=== PATIENT | male | born 1985 | race African-American/Black ===

== ENCOUNTER 2017-05-27 07:06 | Emergency (ER) | payer MEDICARE, MEDICAID ==
[2017-05-27 07:48] LABS: #Basophils 0.1 thou/uL (0.0-0.2); #Lymphocytes 1.6 thou/uL (1.20-3.40); #Monocytes 0.5 thou/uL (0.11-0.59); #Neutrophils 1.8 thou/uL (1.40-6.50); %Basophils 1.9 % (0.0-1.0); %Lymphocytes 38.5 % (21.0-51.0); %Monocytes 13.3 % (0.0-10.0); %Neutrophils 45.4 % (42.0-75.0); Hemoglobin 13.5 g/dL (14.0-18.0); Mean Corpuscular HGB CONC 30.4 g/dL (32.0-36.0); Mean Corpuscular Hemoglobin 22.7 pg (27.0-31.0); Mean Corpuscular Volume 74.5 fl (80.0-94.0); Mean Platelet Volume 9.1 fL (7.4-10.4); Platelet Count 171 thou/uL (130-400); RBC Distribution Width 13.2 % (11.5-14.5); Red Blood Cell (RBC) Count 5.97 mill/uL (4.70-6.10)
--- NOTE | 2017-05-27 07:56 | CT ---
CT OF BRAIN PERFORMED WITHOUT CONTRAST ENHANCEMENT: HISTORY: The patient has a history of seizure and CVA presenting after a seizure at [facility]. COMPARISON: An 11/17/16 exam. FINDINGS: The ventricular and cisternal system is within normal limits. No signs of intracerebral hemorrhage o r extraaxial fluid collection. The mastoid air cells and visualized sinuses are clear. IMPRESSION: No acute intracranial abnormalities. POS: OFF
[2017-05-27 08:05] LABS: ALT (SGPT) 34 U/L (8-55); AST (SGOT) 48 U/L (5-34); Albumin 4.2 g/dL (3.5-5.0); Alkaline Phosphatase 70 U/L (40-150); Anion Gap 11 mmol/L (10-20); BUN (Urea Nitrogen) 8 mg/dL (8.9-20.6); Bilirubin, Total 0.4 mg/dL (0.2-1.2); Calc. Creatinine Clearance 0 mL/min (70-130); Calcium 9.6 mg/dL (7.8-10.44); Carbon Dioxide 24 mmol/L (22-29); Chloride 107 mmol/L (98-107); Estimated GFR-MDRD Greater than 90; Globulin 3.3 g/dL (2.4-3.5); Glucose 103 mg/dL (70-105); Potassium 3.5 mmol/L (3.5-5.1); Protein, Total 7.5 g/dL (6.0-8.3); Sodium 138 mmol/L (136-145)
[2017-05-27 08:25] LABS: MDiff Complete? YES; Microcytosis SLIGHT = 6-15 cells (100X) (0-5/hpf)
[2017-05-27 09:30] LABS: Bilirubin Negative (Negative); Blood, Urine Moderate (Negative); Clarity CLOUDY (Clear); Glucose, Urine (Dipstick) Negative (Negative); Leukocyte Negative (Negative); Nitrite Negative (Negative); Protein, Urine (Dipstick) Negative (Neg-Trace); pH, Urine 7.5 (5.0-9.0)
[2017-05-27 09:33] LABS: Bacteria/HPF None Seen HPF (None Seen); Hyaline Casts/LPF 0-3 HYALINE CAST LPF (0-3 Hyaline); Pathc Cast-AUWi Flag 0.13 (0-2.49); RBC/HPF 21-50 HPF (0-3); Squamous Epithelial 0-3 HPF (0-3); WBC/HPF None Seen HPF (0-3)
[2017-05-27 09:50] LABS: Amphetamine Not Detected (NotDetected); Barbiturates Screen Not Detected (NotDetected); Benzodiazepine Screen Detected (NotDetected); Cocaine Metabolite Screen Not Detected (NotDetected); Medtox Control Line Valid? VALID (VALID); Medtox Reader # READER 1; Methadone Not Detected (NotDetected); Methamphetamine Not Detected (NotDetected); Opiate Screen Not Detected (NotDetected); Oxycodone Screen Not Detected (NotDetected); Phencyclidine (PCP) Not Detected (NotDetected); THC/Cannabinoid Screen Not Detected (NotDetected); Tricyclic Screen Not Detected (NotDetected)
== END 2017-05-27 09:38 | disposition home or self-care (01) ==
LOC: ERS 07:06
DX: G40.909 Epilepsy, unspecified, not intractable, without status epilepticus (principal); Z86.73 Personal history of transient ischemic attack (TIA), and cerebral infarction without residual deficits; Z79.82 Long term (current) use of aspirin; Z79.899 Other long term (current) drug therapy
CPT/HCPCS: 36415; 70450; 80053; 80306; 81003; 81015; 84146; 85025

== ENCOUNTER 2017-07-12 10:45 | Inpatient (IN) | payer MEDICARE, MEDICAID ==
[2017-07-12 11:14] LABS: #Basophils 0.1 thou/uL (0.0-0.2); #Lymphocytes 1.8 thou/uL (1.20-3.40); #Monocytes 0.5 thou/uL (0.11-0.59); #Neutrophils 1.6 thou/uL (1.40-6.50); %Basophils 1.3 % (0.0-1.0); %Eosinophils 1.1 % (0.0-10.0); %Lymphocytes 45.4 % (21.0-51.0); %Monocytes 13.5 % (0.0-10.0); %Neutrophils 38.6 % (42.0-75.0); Hemoglobin 14.5 g/dL (14.0-18.0); Mean Corpuscular HGB CONC 30.6 g/dL (32.0-36.0); Mean Corpuscular Hemoglobin 22.7 pg (27.0-31.0); Mean Corpuscular Volume 74.3 fl (80.0-94.0); Mean Platelet Volume 9.2 fL (7.4-10.4); Platelet Count 165 thou/uL (130-400); RBC Distribution Width 13.1 % (11.5-14.5); Red Blood Cell (RBC) Count 6.41 mill/uL (4.70-6.10)
[2017-07-12 11:21] LABS: INR-International Normal Ratio 1.1; PTT 27.4 SEC (22.9-36.1); Prothrombin Time 14.1 SEC (12.0-14.7)
[2017-07-12 11:27] LABS: ALT (SGPT) 24 U/L (8-55); AST (SGOT) 29 U/L (5-34); Albumin 4.3 g/dL (3.5-5.0); Alkaline Phosphatase 75 U/L (40-150); Anion Gap 11 mmol/L (10-20); BUN (Urea Nitrogen) 7 mg/dL (8.9-20.6); Bilirubin, Total 0.4 mg/dL (0.2-1.2); Calc. Creatinine Clearance 0 mL/min (70-130); Calcium 9.8 mg/dL (7.8-10.44); Carbon Dioxide 23 mmol/L (22-29); Chloride 109 mmol/L (98-107); Estimated GFR-MDRD Greater than 90; Globulin 3.6 g/dL (2.4-3.5); Glucose 70 mg/dL (70-105); Potassium 3.9 mmol/L (3.5-5.1); Protein, Total 7.9 g/dL (6.0-8.3); Sodium 139 mmol/L (136-145)
[2017-07-12 11:32] LABS: CKMB 3.7 ng/mL (0-6.6)
[2017-07-12] MEDS ORDERED: Metoclopramide 10 MG/10 ML UDCUP ONE ×3 (11:38→13:41)
[2017-07-12 11:40] LABS: Troponin I Less than 0.010 ng/mL (< 0.028)
--- NOTE | 2017-07-12 11:53 | CT ---
NONCONTRAST CT HEAD: DATE: 07/12/17. HISTORY: Last seen normal 10 minutes ago. Left-sided weakness and facial droop. COMPARISON: 05/27/17. FINDINGS: There is no evidence of an acute infarction, hemorrhage, mass effect, or midline shift. Ventricular system is normal in size, shape, and position. There has been no interval change when compared to th e prior exam. IMPRESSION: 1. No acute intracranial abnormality is demonstrated. 2. The above findings were discussed with Dr. Prince in emergency department on 07/12/17 at 1109 ying rs. CODE CR POS: [facility]
--- NOTE | 2017-07-12 12:21 | CT ---
CT ANGIOGRAM NECK WITH IV CONTRAST AND 3D RECONSTRUCTIONS CT ANGIOGRAM BRAIN WITH IV CONTRAST AND 3D RECONSTRUCTIONS: Date: 07-12-17 History: Patient last seen normal 10 minutes ago. Patient with left sided facial droop and left sided weakness. FINDINGS: CT ANGIOGRAM BRAIN: The anterior cerebral and middle cerebral arteries are patent. No focal stenosis or branch occlusion is seen. There is a type origin of the left posterior cerebral artery. Posterior cerebral arteries are o therwise patent. The distal vertebral arteries and basilar artery are patent. No aneurysm is seen within the limitation of the technique of this examination. There is venous contamination due to timing of the contrast bolus. This exam is diagnostic. IMPRESSION: 1. No focal stenosis, branch occlusion involving the [place] or vertebral basilar system. CT ANGIOGRAM NECK: Due to artifact in the upper chest, the left subclavian artery is not well visualized. However, the a ortic arch is normal in caliber without evidence of atherosclerotic plaque. There is a normal arrange ment of the great vessels at the aortic arch. Visualized great vessels are patent. The bilateral comm on carotid arteries as well as the bilateral internal and external carotid arteries are patent. There are single patent and codominant bilateral vertebral bodies. Visualized upper lung zones are clear. A mucous retention cyst is seen in each maxillary antrum. Mastoid air cells are clear. Bilateral submandibular and parotid glands as well as thyroid gland have a normal CT appearance. IMPRESSION: 1. Patent bilateral internal carotid arteries. 2. Patent codominant bilateral vertebral arteries. Above findings discussed with Dr. Prince in the Emergency Department on 07-12-17 at 1126 hours. POS: [facility]
[2017-07-12] MEDS ORDERED: diphenhydrAMINE 50 MG/ML VIAL ONE (12:46)
[2017-07-12] MEDS ORDERED: methylPREDNISolone Sod Succ/PF 125 MG/2 ML VIAL ONE (12:46)
[2017-07-12] MEDS ORDERED: Magnesium Sulfate 2 GM/100 ML BAG ONE (14:28)
[2017-07-12] MEDS ORDERED: ISOVUE-370 76%-LOCM 1 ML ONE (14:36)
[2017-07-12 15:23] LABS: Bilirubin Negative (Negative); Blood, Urine Negative (Negative); Clarity CLEAR (Clear); Glucose, Urine (Dipstick) Negative (Negative); Leukocyte Negative (Negative); Nitrite Negative (Negative); Protein, Urine (Dipstick) Negative (Neg-Trace); Specific Gravity, Urine 1.041 (1.002-1.036); pH, Urine 7.5 (5.0-9.0)
[2017-07-12 16:46] VITALS: BMI 36.3
--- NOTE | 2017-07-12 19:40 | CON ---
DATE OF CONSULTATION: 07/12/2017 REFERRING PROVIDER: Mana Haji MD REASON FOR CONSULTATION: Left-sided numbness. HISTORY OF PRESENT ILLNESS: Mr. Verde is a 31-year-old -F[place]ian male, who has been consulte d for evaluation of left-sided numbness. The patient has a history of pseudoseizures in the past and has been seen by Dr. Augustus Berger in 08/2016 and had an extensive workup at that time, which were all nonrevealing. At this visit, the patient reports that he had a sudden onset of numbness on his left side of the face, arm and leg, which prompted him to present to the [facility]. He a lso complained of having headache, which was in the left frontal orbital region, this was throbbing i n quality, moderate to severe intensity. He has a history of migraine headaches; however, never had any episode with the headache followed by numbness on one side of the body. As the symptoms were not improving, he decided to present to the [facility]. He reports that since being admi tted to the hospital, his symptoms have improved. He denies any numbness, tingling or weakness. He has a very mild 1-2/10 intensity dull headache. He denies chest pain, palpitation, nausea, vomiting, or abdominal pain. PAST MEDICAL HISTORY: Significant for pseudoseizures. PAST SURGICAL HISTORY: Significant for hernia repair. CURRENT MEDICATIONS: Please review MAR. ALLERGIES: No known drug allergies. SOCIAL HISTORY: Denies smoking, alcohol use, or illicit drug use. FAMILY HISTORY: Significant for mother with hypertension and diabetes, father with degenerative spin e disease. REVIEW OF SYSTEMS: As mentioned in the HPI, otherwise negative. PHYSICAL EXAMINATION: VITAL SIGNS: Blood pressure of 129/68, pulse of 77, temperature of 98.3, respirations are 20, O2 sat uration 98% on room air. GENERAL: Well-developed, well-nourished -Fijian male, in no apparent distress. RESPIRATORY: Clear to auscultation bilaterally. CARDIOVASCULAR: Regular rate and rhythm. NEUROLOGIC: Mental status: The patient is awake, alert, and oriented x3. Speech and language: Flu ent speech. Cranial nerves: Pupils are 3 mm and reactive. Visual kyle are intact. Extraocular m uscles are intact. No nystagmus noted. Face is symmetric. Tongue and uvula midline. Motor exam sh owed normal tone and bulk with a 5/5 strength in both upper and lower extremities. Sensory: Sensati on is intact and symmetric. Deep tendon reflexes 2+ reflexes in both upper and lower extremities. C oordination is intact to [id number] and finger tapping bilaterally. LABORATORY DATA: Reviewed, which included CBC, coag panel, CMP, urinalysis, which is significant for WBC of 4.0, otherwise unremarkable. IMAGING STUDIES: CT head without contrast was reviewed, which showed no acute intracranial abnormali ty. CT angiogram of the head and neck were reviewed, which showed no acute intracranial or extracran ial vascular abnormality. IMPRESSION: 1. Left-sided numbness, now resolved. 2. Headache. PLAN: Mr. Verde is a 31-year-old -Fijian male, who presented with an acute onset of headac he and left-sided numbness. His symptoms have now resolved. He has prior history of pseudoseizures and has presented with the similar symptoms in the past. He has been worked up very thoroughly with negative workup. At this time, I will recommend keeping him in the hospital for 23-hour observation. If he remains stable, he is okay to be discharged home. No further neurological workup needed from my standpoint. Thank you for consultation.
[2017-07-13 05:42] LABS: #Lymphocytes 1.4 thou/uL (1.20-3.40); #Monocytes 0.8 thou/uL (0.11-0.59); #Neutrophils 7.8 thou/uL (1.40-6.50); %Basophils 0.3 % (0.0-1.0); %Eosinophils 0.1 % (0.0-10.0); %Monocytes 7.7 % (0.0-10.0); %Neutrophils 77.8 % (42.0-75.0); Hemoglobin 13.7 g/dL (14.0-18.0); Mean Corpuscular HGB CONC 30.8 g/dL (32.0-36.0); Mean Corpuscular Hemoglobin 22.5 pg (27.0-31.0); Mean Corpuscular Volume 73.2 fl (80.0-94.0); Mean Platelet Volume 8.9 fL (7.4-10.4); Platelet Count 174 thou/uL (130-400); RBC Distribution Width 13.1 % (11.5-14.5)
[2017-07-13 06:00] LABS: Anion Gap 11 mmol/L (10-20); BUN (Urea Nitrogen) 9 mg/dL (8.9-20.6); Calc. Creatinine Clearance 199 mL/min (70-130); Calcium 9.4 mg/dL (7.8-10.44); Carbon Dioxide 22 mmol/L (22-29); Chloride 109 mmol/L (98-107); Estimated GFR-MDRD Greater than 90; Glucose 113 mg/dL (70-105); Potassium 4.3 mmol/L (3.5-5.1); Sodium 138 mmol/L (136-145)
[2017-07-13] MEDS ORDERED: Diazepam 5 MG TAB PO PRN (07:34)
[2017-07-13 07:36] VITALS: TEMP 98.1
--- NOTE | 2017-07-13 08:37 | SS ---
PRIMARY CARE PHYSICIAN: Dr. José Luis Vasquez CHIEF COMPLAINT: Left-sided weakness with headache. HISTORY OF PRESENT ILLNESS: This is a 31-year-old male who has a history of prior pseudoseizures wit h resultant left-sided weakness who presented with another episode of the same, this time accompanied by a headache. It appears that he had previously been presumed to have a CVA in the past, but that had actually been ruled out and his presenting symptoms from a prior hospitalization demonstrated act ually pseudoseizures as opposed to an overt stroke. At the time of my evaluation, the patient states that his slurred speech is back to his baseline. Hi s left-sided weakness is back to his baseline and his headache is currently resolved after a course o f pain medications in the emergency department. The patient states that he has been under a lot of s tress recently and that he does occasionally get these "episodes". REVIEW OF SYSTEMS: As per HPI. CONSTITUTIONAL: No recent fevers or chills. No weight changes over the last month. HEENT: Headaches as above. He describes it as all over, tight and pounding. Denies any vision richmond ges. Denies any nausea. Denies any dizziness. RESPIRATORY: No recent shortness of breath. No new cough. No new issues with congestion. CARDIOVASCULAR: Denies any chest pressure or chest pain. No left-sided arm numbness or tingling, al though he did have weakness as described above that is not out of proportion to his baseline. GASTROINTESTINAL: Denies any nausea, vomiting, abdominal pain. Denies any issues with diarrhea or c onstipation. Last bowel movement was the day before. MUSCULOSKELETAL: Weakness as described in the HPI, otherwise no new myalgias or arthralgias. PAST MEDICAL HISTORY: As per above, pseudoseizures. PAST SURGICAL HISTORY: Hernia repair. HOME MEDICATIONS: Please see the EMR for full details. Patient does not recall his medications off of the top of his head, other than that, they have not changed in the last month. He states that his is bringing them in for him. ALLERGIES: No known drug allergies. FAMILY HISTORY: With a known history of diabetes, hypertension, hypothyroidism, and hyperlipidemia. No other known family history of seizure disorders. 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 The patient states that at work, he typically does not have any difficulty performing his duties, alt andreea sometimes "gets tired easily". He denies any alcohol, tobacco or illicit drug use. PHYSICAL EXAMINATION: VITAL SIGNS: Temperature 98.1, heart rate 74, respirations 16, satting 96% on room air, blood pressu re 118/55. GENERAL: The patient is awake, alert, oriented x3, a reasonable historian, conversant. HEENT: Moist mucous membranes. Equal ocular motions are intact. Cranial nerves II-XII are grossly intact. He subjectively has some slurred speech. CARDIOVASCULAR: S1, S2. No murmurs, rubs or gallops. Pulses 2+ bilateral upper extremity, no pedal edema. RESPIRATORY: Reasonable air movement. No wheezes, rales or rhonchi. Overall, clear to auscultation bilaterally. ABDOMEN: Positive bowel sounds, soft, nontender to palpation. LABORATORY AND IMAGING: WBC 4.0, hemoglobin 14.5, hematocrit 47.6, platelets 165. PT 14.1, INR 1.1 . Sodium 139, potassium 3.9, chloride 109, bicarbonate 23, BUN 7, creatinine 1.03, glucose 70, calci um 9.8, total bilirubin 0.4, AST 29, ALT 24, alkaline phosphatase 75. Troponin less than 0.01. Prot ein 7.9, albumin 4.3. UA is significant for specific gravity of 1.041. INITIAL IMPRESSION AND PLAN: Concern for new neurological issues, question of atypical migraine. Maya pportive management as the patient is currently neurologically back to his baseline. I appreciate Ne urology consult. DISCHARGE DIAGNOSES: Pseudoseizures. The patient was seen by Neurology during this hospitalization, continued to be stable overnight. At this point in time, the patient does not need any additional i maging and can be discharged after observation without recurrence of his symptoms. Most likely they do represent a manifestation of his known pseudoseizures. LABORATORY AND IMAGIN07/12/2017 - CT angiography: Impression of the CT angiogram brain "no foca l stenosis, branch occlusion involving the [place] or vertebral basilar system." CT angiogr am neck impression "patent bilateral internal carotid arteries. The patent codominant bilateral verte bral arteries." 07/12/[address] Impression "No acute intracranial abnormalities demonstrated." Thank you for asking me to care for the patient. With questions or concerns, please contact me at [facility]. Greater than 30 minutes spent coordinating discharge for the patient.
[2017-07-13] MEDS ORDERED: Non-Formulary Item 1 EACH (Ferrous Sulfate [Ferrous Sulfate] 325 MG) PO SCH (09:00)
[2017-07-13] MEDS ORDERED: Enoxaparin Sodium 40 MG/0.4 ML SYRINGE SC SCH (09:00)
[2017-07-13] MEDS ORDERED: Aspirin 81 mg Enteric Coated Tablet PO SCH (09:00)
[2017-07-13] MEDS ORDERED: Ferrous Sulfate 325 MG TAB PO SCH (09:00)
[2017-07-13] MEDS ORDERED: Metoprolol Tartrate 50 MG TAB PO SCH (09:00)
[2017-07-13 11:28] VITALS: BP 125/58
[2017-07-13] MEDS ORDERED: Atorvastatin Calcium 10 MG TAB PO SCH (21:00)
== END 2017-07-13 10:17 | disposition home or self-care (01) | DRG 880 ==
LOC: ERS 10:45 → 2SE 14:54
PROVIDERS: ADMIT Internal Medicine; ATTEND Internal Medicine
DX: F44.5 Conversion disorder with seizures or convulsions (principal); F32.9 Major depressive disorder, single episode, unspecified; G43.909 Migraine, unspecified, not intractable, without status migrainosus; I10 Essential (primary) hypertension
CPT/HCPCS: 36415; 36416; 70450; 70496; 70498; 80048; 80053; 81003; 82553; 84484; 85025; 85610; 85730; 93005; 94760; 96361; 96365; 96375; G8978-GP-CH; G8979-GP-CH; G8980-GP-CH; J1200; J1650; J2930; J3475

== ENCOUNTER 2017-09-29 09:15 | Emergency (ER) | payer MEDICAID, MEDICARE ==
--- NOTE | 2017-09-29 09:50 | CT ---
CT BRAIN WITHOUT CONTRAST: HISTORY: Altered mental status. Seizure. COMPARISON: 07/12/2017 FINDINGS: No evidence of infarct, hemorrhage, midline shift, or abnormal extraaxial fluid collections is seen. The ventricular size is normal, and the basilar cisterns are patent. The bony calvarium is intact. The visualized paranasal sinuses and mastoid air cells are well aerated. IMPRESSION: No CT evidence of acute intracranial process. POS: OFF
[2017-09-29 09:53] LABS: Hemoglobin 13.9 g/dL (14.0-18.0); Mean Corpuscular HGB CONC 32.3 g/dL (32.0-36.0); Mean Corpuscular Hemoglobin 23.2 pg (27.0-31.0); Mean Corpuscular Volume 71.8 fL (78.0-98.0); Mean Platelet Volume 8.7 fL (7.4-10.4); Platelet Count 167 thou/uL (130-400); RBC Distribution Width 12.8 % (11.5-14.5); Red Blood Cell (RBC) Count 5.98 mill/uL (4.70-6.10); White Blood Cell (WBC) Count 3.2 thou/uL (4.8-10.8)
[2017-09-29 10:15] LABS: ALT (SGPT) 15 U/L (8-55); AST (SGOT) 23 U/L (5-34); Albumin 4.4 g/dL (3.5-5.0); Alkaline Phosphatase 70 U/L (40-150); Anion Gap 12 mmol/L (10-20); BUN (Urea Nitrogen) 9 mg/dL (8.9-20.6); Bilirubin, Total 0.6 mg/dL (0.2-1.2); Calc. Creatinine Clearance 0 mL/min (70-130); Calcium 9.6 mg/dL (7.8-10.44); Carbon Dioxide 23 mmol/L (22-29); Chloride 107 mmol/L (98-107); Estimated GFR-MDRD 90; Globulin 3.4 g/dL (2.4-3.5); Glucose 91 mg/dL (70-105); Potassium 3.6 mmol/L (3.5-5.1); Protein, Total 7.8 g/dL (6.0-8.3); Sodium 138 mmol/L (136-145)
[2017-09-29 10:26] LABS: Eosinophils 3 % (0-10); Lymphocytes 42 % (21-51); MDiff Complete? YES; Microcytosis MODERATE=15-30 cells (100X) (0-5/hpf); Monocytes 6 % (0-10); Neutrophil 46 % (42-75); PLT Morphology Comment Appears Adequate; Polychromasia SLIGHT = 2-3 cells (100X) (0-2/hpf); Reactive Lymphocytes 3 % (0-10)
[2017-09-29] MEDS ORDERED: Acetaminophen 500 MG TAB ONE (11:27)
== END 2017-09-29 11:46 | disposition home or self-care (01) ==
LOC: ERS 09:15
DX: R56.9 Unspecified convulsions (principal); I10 Essential (primary) hypertension; Z86.73 Personal history of transient ischemic attack (TIA), and cerebral infarction without residual deficits; Z79.82 Long term (current) use of aspirin; Z79.899 Other long term (current) drug therapy
CPT/HCPCS: 36415; 70450; 80053; 84146; 85025

== ENCOUNTER 2017-10-03 17:09 | Emergency (ER) | payer MEDICARE ==
[2017-10-03] MEDS ORDERED: levETIRAcetam In NaCl (Iso-Os) 1,500 MG in Premix Bag 1 BAG IVPB SCH (17:45)
[2017-10-03 18:09] LABS: #Lymphocytes 1.3 thou/uL (1.20-3.40); #Monocytes 0.5 thou/uL (0.11-0.59); #Neutrophils 1.7 thou/uL (1.40-6.50); %Basophils 0.5 % (0.0-1.0); %Eosinophils 0.3 % (0.0-10.0); %Lymphocytes 37.7 % (21.0-51.0); %Neutrophils 47.4 % (42.0-75.0); Hemoglobin 12.7 g/dL (14.0-18.0); Mean Corpuscular HGB CONC 31.9 g/dL (32.0-36.0); Mean Corpuscular Hemoglobin 22.9 pg (27.0-31.0); Mean Corpuscular Volume 71.9 fL (78.0-98.0); Platelet Count 153 thou/uL (130-400); RBC Distribution Width 12.5 % (11.5-14.5); Red Blood Cell (RBC) Count 5.52 mill/uL (4.70-6.10); White Blood Cell (WBC) Count 3.5 thou/uL (4.8-10.8)
[2017-10-03 18:27] LABS: ALT (SGPT) 20 U/L (8-55); AST (SGOT) 31 U/L (5-34); Albumin 4.3 g/dL (3.5-5.0); Alkaline Phosphatase 68 U/L (40-150); Anion Gap 13 mmol/L (10-20); BUN (Urea Nitrogen) 10 mg/dL (8.9-20.6); Bilirubin, Total 0.8 mg/dL (0.2-1.2); Calc. Creatinine Clearance 0 mL/min (70-130); Calcium 9.4 mg/dL (7.8-10.44); Carbon Dioxide 23 mmol/L (22-29); Chloride 107 mmol/L (98-107); Estimated GFR-MDRD Greater than 90; Globulin 3.2 g/dL (2.4-3.5); Glucose 86 mg/dL (70-105); Potassium 3.6 mmol/L (3.5-5.1); Protein, Total 7.5 g/dL (6.0-8.3); Sodium 139 mmol/L (136-145)
--- NOTE | 2017-10-03 18:29 | CT ---
CT BRAIN: HISTORY: Seizures. COMPARISON: 09/29/2017 TECHNIQUE: Noncontrast enhanced CT images of the brain are obtained on 10/03/2017. FINDINGS: Noncontrast enhanced CT images of the brain demonstrate the brain to be unremarkable. No evidence of intracranial masses, hemorrhages, strokes, or contusions seen. The ventricles are of normal size. IMPRESSION: Normal CT brain. POS: [facility]
== END 2017-10-03 19:56 | disposition home or self-care (01) ==
LOC: ERS 17:09
DX: R56.9 Unspecified convulsions (principal); I10 Essential (primary) hypertension; Z86.73 Personal history of transient ischemic attack (TIA), and cerebral infarction without residual deficits; Z79.82 Long term (current) use of aspirin; Z79.899 Other long term (current) drug therapy
CPT/HCPCS: 70450; 80053; 84146; 85025; 93005; 94760; 96365; 99284; J1953; 36415

== ENCOUNTER 2017-10-03 23:59 | Emergency (ER) | payer MEDICARE ==
[2017-10-04] MEDS ORDERED: Diazepam 5 MG TAB ONE (01:19)
== END 2017-10-04 01:27 | disposition home or self-care (01) ==
LOC: ERS 23:59
DX: R56.9 Unspecified convulsions (principal); I10 Essential (primary) hypertension; Z86.73 Personal history of transient ischemic attack (TIA), and cerebral infarction without residual deficits; Z79.899 Other long term (current) drug therapy
CPT/HCPCS: 99284

== ENCOUNTER 2017-10-17 11:34 | Emergency (ER) | payer MEDICARE ==
[2017-10-17] MEDS ORDERED: ISOVUE-370 76%-LOCM 1 ML ONE (11:48)
[2017-10-17 12:01] LABS: Hemoglobin 13.1 g/dL (14.0-18.0); Mean Corpuscular HGB CONC 30.1 g/dL (32.0-36.0); Mean Corpuscular Hemoglobin 22.4 pg (27.0-31.0); Mean Corpuscular Volume 74.4 fL (78.0-98.0); Mean Platelet Volume 9.1 fL (7.4-10.4); Platelet Count 153 thou/uL (130-400); RBC Distribution Width 13.4 % (11.5-14.5); Red Blood Cell (RBC) Count 5.84 mill/uL (4.70-6.10); White Blood Cell (WBC) Count 3.4 thou/uL (4.8-10.8)
[2017-10-17 12:12] LABS: ALT (SGPT) 17 U/L (8-55); AST (SGOT) 21 U/L (5-34); Albumin 4.1 g/dL (3.5-5.0); Alkaline Phosphatase 59 U/L (40-150); Anion Gap 10 mmol/L (10-20); BUN (Urea Nitrogen) 6 mg/dL (8.9-20.6); Bilirubin, Total 0.5 mg/dL (0.2-1.2); CK (CPK) 317 U/L (30-200); Calc. Creatinine Clearance 0 mL/min (70-130); Calcium 9.6 mg/dL (7.8-10.44); Carbon Dioxide 23 mmol/L (22-29); Chloride 111 mmol/L (98-107); Estimated GFR-MDRD Greater than 90; Glucose 91 mg/dL (70-105); INR-International Normal Ratio 1.1; PTT 27.2 SEC (22.9-36.1); Potassium 4.3 mmol/L (3.5-5.1); Protein, Total 7.1 g/dL (6.0-8.3); Prothrombin Time 14.5 SEC (12.0-14.7); Sodium 140 mmol/L (136-145)
[2017-10-17 12:17] LABS: CKMB 2.2 ng/mL (0-6.6); Troponin I Less than 0.010 ng/mL (< 0.028)
[2017-10-17 12:43] LABS: Eosinophils 2 % (0-10); Lymphocytes 40 % (21-51); MDiff Complete? YES; Monocytes 14 % (0-10); Neutrophil 40 % (42-75); PLT Morphology Comment Appears Decreased; RBC Morphology Normal; Reactive Lymphocytes 2 % (0-10)
[2017-10-17] MEDS ORDERED: Ketorolac Tromethamine 30 MG/ML VIAL ONE (13:38)
--- NOTE | 2017-10-17 14:02 | CT ---
NONCONTRAST CT HEAD: DATE: 10/17/17. HISTORY: Stroke activation. Patient unable to speak and having left-sided deficits. COMPARISON: 10/03/17. FINDINGS: There is no evidence of a hemorrhage, acute infarction, mass effect, or midline shift. Ventricular s ystem is normal in size, shape, and position. There has been no interval change from the prior exam. IMPRESSION: 1. No acute intracranial abnormality is demonstrated. 2. The above findings were discussed with Dr. Sinclair in the emergency department on 10/17/17 at 1144 ho urs. CODE CR POS: [facility]
[2017-10-17 14:23] LABS: Bilirubin Negative (Negative); Blood, Urine Negative (Negative); Clarity CLEAR (Clear); Glucose, Urine (Dipstick) Negative (Negative); Leukocyte Negative (Negative); Nitrite Negative (Negative); Protein, Urine (Dipstick) Negative (Neg-Trace); pH, Urine 6.5 (5.0-9.0)
[2017-10-17 14:28] LABS: Specific Gravity, Urine Greater than 1.060 (1.002-1.036)
--- NOTE | 2017-10-17 14:36 | CT ---
HEAD CTA WITH 3D RENDERING NECK CTA WITH 3D RENDERING: HISTORY: A 32-year-old male unable to speak, left-sided deficits. FINDINGS: NECK CTA WITH 3D RENDERING: No hemodynamically significant stenosis. No mass or adenopathy within the soft tissue neck. The vis ualized C-spine is unremarkable. IMPRESSION: Unremarkable neck CTA. HEAD CTA WITH 3D RENDERING: No evidence for hemodynamically significant stenosis. No aneurysm. Vertebrobasilar artery is unrema rkable. IMPRESSION: Unremarkable brain CTA. No evidence of major branch occlusion or aneurysm or other acute process. Findings were discussed with Dr. Sinclair at 12:06 p.m. CODE CR POS: [facility]
--- NOTE | 2017-10-17 15:56 | CT ---
NONCONTRAST CT ABDOMEN AND PELVIS: DATE: 10/17/17. HISTORY: Right-sided flank pain. COMPARISON: 10/05/16. FINDINGS: There is residual contrast seen in each renal collecting system and in the bilateral ureters as well as urinary bladder related to recent CT angiogram of the head and neck obtained earlier today. This limits evaluation for renal calculi. There is no evidence of hydronephrosis, and no ureteral calculu s is seen in the nonenhanced ureters. There is mild dependent bibasilar atelectasis. The liver, spleen, pancreas, and bilateral adrenal glands demonstrate a normal CT appearance. The appendix is visualized and normal in caliber. A small hypodense lesion again seen at the lateral aspect mid portion left kidney. This was also see n on CT exam on 07/15/15 and probably represents a small cyst. Small fat-containing umbilical hernia is present. IMPRESSION: 1. Limited evaluation of each kidney for evaluation of renal calculi due to contrast within the zaire l collecting systems. However, no renal calculi were present on the prior study on 10/05/16. There i s no hydronephrosis or hydroureter present. 2. Stable hypodense lesion mid portion left kidney likely related to a small cyst. 3. No CT evidence of appendicitis. 4. No acute findings are seen on this nonenhanced CT scan of the abdomen and pelvis. POS: [facility]
== END 2017-10-17 15:02 | disposition home or self-care (01) ==
LOC: ERS 11:34
DX: R10.9 Unspecified abdominal pain (principal); I10 Essential (primary) hypertension; Z86.73 Personal history of transient ischemic attack (TIA), and cerebral infarction without residual deficits; Z79.899 Other long term (current) drug therapy; Z79.82 Long term (current) use of aspirin
CPT/HCPCS: 36415; 36416; 70450; 70496; 70498; 74176; 80053; 81003; 82550; 82553; 84484; 85025; 85610; 85730; 93005; 94760; 96374; J1885

== ENCOUNTER 2019-05-17 08:25 | Outpatient (CLI) | payer MEDICARE ==
--- NOTE | 2019-05-17 09:15 | CT ---
CT Abdomen Pelvis W WO con History: Hematuria Comparison: CT abdomen and pelvis without contrast September 2017 Findings: Lung bases are clear. No pericardial effusion. On the noncontrast portion of the examinatio n there is no nephroureterolithiasis or hydroureteronephrosis. No secondary evidence of a recently passed stone. No abnormal renal parenchymal enhancement. 2 cysts of the interpolar region left kidney, one endophyt ic, and one exophytic without any significant internal enhancement. On the delayed phase of contrast there are no filling defects within the renal calyces, renal pelvis by, ureters, nor the posterior urinary bladder wall. The pancreas is unremarkable as well as adrenal glands. No retroperitoneal periaortic adenopathy. No dilated loops of large or small bowel. The appendix is air-filled. No acute osseous abnormality. Impression: 1. No nephroureterolithiasis or hydroureteronephrosis. No secondary evidence of a recently passed sto ne. 2. Two interpolar left renal cysts without complication. 3. No filling defects of a renal calyces, pelvis, ureters, nor the posterior bladder. 4. No solid renal enhancing mass.
[2019-05-17] MEDS ORDERED: Iopamidol-370 76% 500 ML 1 ML ONE (13:48)
== END 2019-05-17 08:26 | disposition home or self-care (01) ==
LOC: BICCT 08:25
PROVIDERS: ATTEND Urology
DX: R31.29 Other microscopic hematuria (principal); R80.9 Proteinuria, unspecified; N28.1 Cyst of kidney, acquired
CPT/HCPCS: 36415; 74178; 80048; 81001; 87086; Q9967

== ENCOUNTER 2020-02-09 19:11 | Inpatient (IN) | payer MEDICAID, MEDICARE ==
[2020-02-09] MEDS ORDERED: Acetaminophen 500 MG TAB ONE (19:40)
[2020-02-09] MEDS ORDERED: levETIRAcetam in NS 1,500 MG in Premix Bag 1 BAG IVPB SCH (20:00)
[2020-02-09 20:09] LABS: #Lymphocytes 1.9 thou/uL (1.20-3.40); #Monocytes 0.6 thou/uL (0.11-0.59); %Basophils 0.9 % (0.0-1.0); %Lymphocytes 40.7 % (21.0-51.0); %Monocytes 13.3 % (0.0-10.0); %Neutrophils 44.2 % (42.0-75.0); Hemoglobin 13.3 g/dL (14.0-18.0); Mean Corpuscular HGB CONC 30.8 g/dL (32.0-36.0); Mean Corpuscular Hemoglobin 22.4 pg (27.0-31.0); Mean Corpuscular Volume 72.7 fL (78.0-98.0); Mean Platelet Volume 8.3 fL (7.4-10.4); Platelet Count 205 thou/uL (130-400); RBC Distribution Width 13.1 % (11.5-14.5); Red Blood Cell (RBC) Count 5.93 mill/uL (4.70-6.10); White Blood Cell (WBC) Count 4.6 thou/uL (4.8-10.8)
--- NOTE | 2020-02-09 20:25 | CT ---
Head CT without contrast 02/09/2020: COMPARISON: 10/17/2017 HISTORY: Seizures TECHNIQUE: Axial CT imaging at 5 mm intervals from vertex through skull base without contrast FINDINGS: The visualized paranasal sinuses and mastoid air cells are well-aerated. No displaced amarjit rial fracture. No intracranial hemorrhage, midline shift, mass effect, or ventricular enlargement. If there is clinical concern for a seizure focus, follow-up brain MRI advised. IMPRESSION: No acute findings.
[2020-02-09 20:29] LABS: Acetaminophen Less than 6.0 mcg/mL (10.0-30.0); Alcohol Less than 10 mg/dL (Less than 10); CK (CPK) 303 U/L (30-200); Salicylate Less than 8.0 mg/dL (15.0-30.0)
[2020-02-09 20:30] LABS: ALT (SGPT) 52 U/L (8-55); AST (SGOT) 35 U/L (5-34); Albumin 4.1 g/dL (3.5-5.0); Alkaline Phosphatase 68 U/L (40-110); Anion Gap 14 mmol/L (10-20); BUN (Urea Nitrogen) 9 mg/dL (8.9-20.6); Bilirubin, Total 0.5 mg/dL (0.2-1.2); Calc. Creatinine Clearance 0 mL/min (70-130); Calcium 9.4 mg/dL (7.8-10.44); Carbon Dioxide 26 mmol/L (22-29); Chloride 104 mmol/L (98-107); Estimated GFR-MDRD 88; Globulin 3.4 g/dL (2.4-3.5); Glucose 74 mg/dL (70-105); Magnesium 1.9 mg/dL (1.6-2.6); Potassium 3.6 mmol/L (3.5-5.1); Protein, Total 7.5 g/dL (6.0-8.3); Sodium 140 mmol/L (136-145)
[2020-02-09] MEDS ORDERED: Lorazepam 2 MG/ML VIAL SLOW IVP PRN (21:03)
--- NOTE | 2020-02-09 22:07 | PDOC.BPN ---
- Brief Progress Note [id number] HP dictated
--- NOTE | 2020-02-09 22:54 | HP ---
CHIEF COMPLAINT: Seizures. HISTORY OF PRESENT ILLNESS: Mr. Verde is a 34-year-old male with past medical history of seizure, ischemic CVA, migraines, anxiety, depression, was brought to the emergency room by EMS for seizures. While in the emergency room, patient had a seizure. The patient was loaded with IV Keppra. Currently, patient is postictal, but protecting his airway. No further history can be obtained at this time. PAST MEDICAL HISTORY: As mentioned above in history of present illness. PAST SURGICAL HISTORY: Hernia repair. PAST PSYCHIATRIC HISTORY: Anxiety and depression. FAMILY HISTORY: Reviewed and noncontributory. HOME MEDICATIONS: See home medication reconciliation form for updated medications. ALLERGIES: NO KNOWN ALLERGIES. REVIEW OF SYSTEMS: Unable to obtain. The patient currently is postictal. PHYSICAL EXAMINATION: GENERAL: The patient is postictal, protecting his airway. VITAL SIGNS: Blood pressure is 119/69, pulse is 74, respiratory rate is 24, temperature is 98.1, oxygen saturation 94% on room air. HEAD AND NECK: Head normocephalic. Neck supple. No JVD. CHEST: Fair bilateral air entry. HEART: S1, S2. Regular. ABDOMEN: Soft, nontender. Bowel sounds present. NEUROLOGIC: Patient is postictal, unable to assess. PSYCH: Unable to assess. EXTREMITIES: No clubbing, no cyanosis. LABORATORY DATA: Reviewed. Total CK is 303. ASSESSMENT: 1. Breakthrough seizures. 2. History of cerebrovascular accident. 3. History of migraines. 4. Anxiety and depression. PLAN: 1. Admit. 2. Frequent neuro checks. 3. Seizure precautions. 4. The patient was on IV Keppra. 5. IV benzos as needed for seizure activity. 6. EEG. 7. Consult Neurology in a.m. for evaluation and further recommendations. 8. DVT prophylaxis as appropriate. 9. Expected length of stay, at least 1 midnight if patient is stable. Job ID: [id number]
[2020-02-10] MEDS ORDERED: Ondansetron ODT 4 MG TAB SL PRN (00:45)
[2020-02-10] MEDS ORDERED: Sodium Chloride 0.9% 1,000 ML IV SCH (00:45)
[2020-02-10] MEDS ORDERED: Ondansetron PF 4 MG/2 ML Vial IVP PRN (00:45)
[2020-02-10 01:22] VITALS: BMI 33.7
[2020-02-10] MEDS: Sodium Chloride 0.9% 1,000 ML IV SCH ×3 (01:38→16:15)
[2020-02-10 08:39] LABS: SARS-CoV-2 MS2 Positive; SARS-CoV-2 N Gene Negative; SARS-CoV-2 S Gene Negative; SARS-CoV-2 by NAA Not Detected (NotDetected); SARS-CoV-2 orf1ab Negative
[2020-02-10] MEDS ORDERED: levETIRAcetam 750 MG, Admixture Fee 1 EACH in Sodium Chloride 0.9% 100 ML IVPB SCH (09:00)
[2020-02-10] MEDS ORDERED: levETIRAcetam in NS 750 MG in Premix Bag 1 BAG IVPB SCH (09:00)
--- NOTE | 2020-02-10 12:16 | CON ---
DATE OF CONSULTATION: 02/10/2020 IMPRESSION: 1. Pseudoseizures. 2. Chronic episodic headaches. PLAN: 1. Continue Pamelor 25 mg at bedtime. 2. Esgic one tablet every 6 hours as needed for headache. 3. Office followup. HISTORY OF PRESENT ILLNESS: Mr. Verde is a 34-year-old man, who has been followed in the clinic for several years. He was previously diagnosed with pseudoseizures by Dr. Berger. He had EEG monitoring, which confirmed that these were psychogenic. He has had some chronic headaches as well. He has been free of any episodes for quite some time now. He was last seen in the office in June. He was still having episodic headaches. He was started on Pamelor, which reportedly reduced the frequency of his headaches. He reports having sensation come over and while he was at work, he sat down against the wall. He started grabbing his head and having some jerking movements. He reportedly lost consciousness for brief interval. There was no confirmation of this. He came to the emergency room and had a CT of the brain, which was unremarkable. His lab work did not show any acidosis or other metabolic changes. He has not had any further episodes since admission. On exam, he is alert and appropriate. His speech is fluent and clear. There are no focal deficits. There are no abnormal movements. Summary, he is back to his baseline. I do not see any reason to continue his admission. He can be followed up in the office. Job ID: [id number]
[2020-02-10 15:51] VITALS: BP 141/76; TEMP 98.1
--- NOTE | 2020-02-10 17:16 | EKG ---
Test Reason : Blood Pressure : / mmHG Vent. Rate : 068 BPM Atrial Rate : 068 BPM P-R Int : 162 ms QRS Dur : 102 ms QT Int : 422 ms P-R-T Axes : 043 003 009 degrees QTc Int : 448 ms Normal sinus rhythm Possible Left atrial enlargement Left ventricular hypertrophy Abnormal ECG Confirmed by RODOLFO ENRIQUEZ DO ([id number]), state editor AKOSUA VARGAS ([id number]) on 02/10/2020 5:15:50 PM Referred By: Confirmed By:RODOLFO ENRIQUEZ DO
--- NOTE | 2020-02-10 17:22 | PDOC.DS.DS ---
Provider - Provider Date of Admission: 02/09/20 23:38 Date of Discharge: 02/10/20 Admitting Provider: Carole Martinez MD Primary Care Physician: ELVIA BOOGIE Course - Hospital Course Hospital Course: This is a 34-year-old male patient with a history of anxiety, seizures/pseudoseizures who presented overnight with seizure-like activity. He has recently been from his . He was brought to the ED for further evaluation. He was noted to have 1 episode of seizure while in the ED and received a loading of IV Keppra. CT scan of his head was negative for any acute intracranial process, EKG showed normal sinus rhythm. While on admission he had a few episodes of unresponsiveness without any changes in telemetry monitoring or vitals. He would wake without any intervention. Neurology was consulted and on evaluation was noted to be having pseudoseizures. Recommendation was to discharge and follow-up with neurology/psych. Resuscitation Status: 02/09/20 21:07 Resuscitation Status Routine Resuscitation Status: FULL: Full Resuscitation - Labs Lab Results: 02/09/20 20:01 02/09/20 20:01 Abnormal Lab Results - Last 48 hrs 02/09/20 20:01: AST 35 H 02/09/20 20:01: WBC 4.6 L, Hgb 13.3 L, MCV 72.7 L, MCH 22.4 L, MCHC 30.8 L, Monocytes % 13.3 H, Monocytes # 0.6 H 02/09/20 20:01: Creatine Kinase 303 H, Salicylates Less than 8.0 L, Ac etaminophen Less than 6.0 L - Physical Exam Vitals: Vital Signs (12 hours) Temp Pulse Resp BP Pulse Ox 02/10/20 15:50 98.1 F 95 14 141/76 H 98 02/10/20 12:07 78 16 151/93 H 100 02/10/20 11:38 97.9 F 72 16 136/91 H 97 02/10/20 07:46 97.4 F L 75 14 134/70 98 Weight Weight 255 lb 12.8 oz Physical Exam: The patient was seen and examined on the day of discharge. General: Patient in bed in no acute distress. CVS: S1-S2 present. No murmurs gallops or rubs. Respiratory system: Air entry adequate bilaterally. Abdomen: Benign Extremities: No edema Problem - Discharge Plan Plan of Treatment: Pseudoseizures Evaluated by neurology Plan to follow-up with neurology/psychiatryPamelor/fluoxetine Continue on home antidepressants. Plan - Discharge Medications Home Medications: Medication Instructions Recorded Confirmed Type Aspirin [Aspirin EC] 81 mg PO DAILY #30 tablet. 09/10/16 02/10/20 Rx Atorvastatin Calcium [Lipitor] 10 mg PO HS #30 tab 09/10/16 02/10/20 Rx Metoprolol Tartrate 50 mg PO BID 07/12/17 02/10/20 History Amlodipine [Norvasc] 1 tab PO DAILY 02/10/20 02/10/20 History FLUoxetine HCl [Fluoxetine HCl] 40 mg PO DAILY 02/10/20 02/10/20 History Hydrochlorothiazide 12.5 mg PO DAILY 02/10/20 02/10/20 History Nortriptyline HCl 50 mg PO HS 02/10/20 02/10/20 History clonazePAM [Klonopin] 0.5 mg PO BID 02/10/20 02/10/20 History hydrOXYzine Pamoate 50 mg PO QID PRN 02/10/20 02/10/20 History traZODone HCl [Trazodone HCl] 100 mg PO HS 02/10/20 02/10/20 History Allergies: No Known Allergies Allergy (Verified 02/10/20 01:24) - Follow up Plan Referrals: Robert Varela MD [Active] - 14 Days [facility]ERT[facility]REJO & [Primary Care Provider] - 7 Days Disposition: HOME Quality - Care Measures CORE MEASURES:: N/A
== END 2020-02-10 17:26 | disposition home or self-care (01) | DRG 101 ==
LOC: ERS 19:11 → 2SE 23:38
PROVIDERS: ADMIT Internal Medicine; ATTEND Internal Medicine
DX: R56.9 Unspecified convulsions (principal); G43.909 Migraine, unspecified, not intractable, without status migrainosus; Z20.828 Contact with and (suspected) exposure to other viral communicable diseases; Z98.890 Other specified postprocedural states; Z86.73 Personal history of transient ischemic attack (TIA), and cerebral infarction without residual deficits; F32.9 Major depressive disorder, single episode, unspecified; F41.9 Anxiety disorder, unspecified
CPT/HCPCS: 36415; 70450; 80048; 80053; 80307; 81003; 82306; 82550; 82570; 83735; 83970; 84100; 84156; 84484; 85025; 86038; 86225; 87635; 93005; 96365; J1953; U0003

== ENCOUNTER 2020-02-20 20:18 | Emergency (ER) | payer MEDICARE, MEDICAID | END 2020-02-20 20:58 | disposition home or self-care (01) | LOC: ERS 20:18 | DX: R56.9 Unspecified convulsions (principal); I10 Essential (primary) hypertension; Z79.82 Long term (current) use of aspirin; Z79.899 Other long term (current) drug therapy | CPT/HCPCS: 99283 ==

== ENCOUNTER 2020-12-20 15:30 | Inpatient (IN) | payer MEDICARE ==
[~2020-12-20 15:30] MED LIST: Iopamidol 370 76% 50 ML VIAL FS ONE; Iopamidol-370 76% 500 ML 1 ML ONE
[2020-12-20 16:10] LABS: Hemoglobin 13.5 g/dL (14.0-18.0); Mean Corpuscular HGB CONC 30.1 g/dL (32.0-36.0); Mean Corpuscular Hemoglobin 22.4 pg (27.0-31.0); Mean Corpuscular Volume 74.3 fL (78.0-98.0); Mean Platelet Volume 9.3 fL (7.4-10.4); Platelet Count 166 thou/uL (130-400); RBC Distribution Width 12.9 % (11.5-14.5); Red Blood Cell (RBC) Count 6.01 mill/uL (4.70-6.10); White Blood Cell (WBC) Count 4.1 thou/uL (4.8-10.8)
[2020-12-20 16:19] LABS: Prothrombin Time 13.9 sec (12.0-14.7)
[2020-12-20 16:20] LABS: PTT 29.2 sec (22.9-36.1)
[2020-12-20 16:21] LABS: INR-International Normal Ratio 1.1
[2020-12-20 16:33] LABS: ALT (SGPT) 22 U/L (8-55); AST (SGOT) 26 U/L (5-34); Albumin 3.7 g/dL (3.5-5.0); Alkaline Phosphatase 68 U/L (40-110); Anion Gap 9 mmol/L (10-20); BUN (Urea Nitrogen) 9 mg/dL (8.9-20.6); Band 1 % (5-11); Bilirubin, Total 0.4 mg/dL (0.2-1.2); CK (CPK) 633 U/L (30-200); Calc. Creatinine Clearance 0 mL/min (70-130); Calcium 9.2 mg/dL (7.8-10.44); Carbon Dioxide 26 mmol/L (22-29); Chloride 105 mmol/L (98-107); Globulin 3.1 g/dL (2.4-3.5); Glucose 89 mg/dL (70-105); Lymphocytes 41 % (21-51); MDiff Complete? YES; Microcytosis SLIGHT = 6-15 cells (100X) (0-5/hpf); Monocytes 14 % (0-10); Neutrophil 32 % (42-75); Ovalocytes SLIGHT = 2-5 cells (100X) (0-1/hpf); Platelet Morphology Comment Appears Adequate; Potassium 3.8 mmol/L (3.5-5.1); Protein, Total 6.8 g/dL (6.0-8.3); Reactive Lymphocytes 12 % (0-10); Sodium 136 mmol/L (136-145)
[2020-12-20 18:28] LABS: SARS-CoV-2 NAA Rapid Test Not Detected (NotDetected)
[2020-12-20] MEDS: Atorvastatin Calcium 40 MG TAB PO SCH (21:50)
[2020-12-21] MEDS ORDERED: Aspirin 81 mg Enteric Coated Tablet PO SCH (14:00)
[2020-12-21 15:51] LABS: Hemoglobin 14.9 g/dL (14.0-18.0); Mean Corpuscular HGB CONC 31.8 g/dL (32.0-36.0); Mean Corpuscular Hemoglobin 23.4 pg (27.0-31.0); Mean Corpuscular Volume 73.8 fL (78.0-98.0); Mean Platelet Volume 9.4 fL (7.4-10.4); Platelet Count 173 thou/uL (130-400); RBC Distribution Width 12.9 % (11.5-14.5); Red Blood Cell (RBC) Count 6.37 mill/uL (4.70-6.10); White Blood Cell (WBC) Count 3.8 thou/uL (4.8-10.8)
[2020-12-21 16:06] LABS: Eosinophils 1 % (0-10); Hypochromia SLIGHT = 6-15 cells (100X) (0-5/hpf); Lymphocytes 37 % (21-51); MDiff Complete? YES; Metamyelocyte 1 % (0-0); Microcytosis SLIGHT = 6-15 cells (100X) (0-5/hpf); Monocytes 13 % (0-10); Neutrophil 39 % (42-75); Ovalocytes SLIGHT = 2-5 cells (100X) (0-1/hpf); Platelet Morphology Comment Appears Adequate; Reactive Lymphocytes 8 % (0-10)
[2020-12-21 16:14] LABS: ALT (SGPT) 23 U/L (8-55); AST (SGOT) 23 U/L (5-34); Albumin 3.9 g/dL (3.5-5.0); Alkaline Phosphatase 72 U/L (40-110); Anion Gap 8 mmol/L (10-20); BUN (Urea Nitrogen) 8 mg/dL (8.9-20.6); Bilirubin, Total 0.4 mg/dL (0.2-1.2); Calc. Creatinine Clearance 173 mL/min (70-130); Calcium 9.5 mg/dL (7.8-10.44); Carbon Dioxide 28 mmol/L (22-29); Cardiac Risk 2.6 (Less than 4.5); Chloride 105 mmol/L (98-107); Cholesterol 118 mg/dl (< 200 Desired); Globulin 3.5 g/dL (2.4-3.5); Glucose 92 mg/dL (70-105); HDL Cholesterol 45 mg/dL (>60 Neg Risk); LDL Cholesterol, Calculated 56 mg/dL; Potassium 3.8 mmol/L (3.5-5.1); Protein, Total 7.4 g/dL (6.0-8.3); Sodium 137 mmol/L (136-145); Triglycerides 84 mg/dL (Less than 150)
[2020-12-21] MEDS ORDERED: Nortriptyline HCl 25 MG CAP PO SCH (21:00)
[2020-12-21] MEDS: Atorvastatin Calcium 40 MG TAB PO SCH (21:15)
[2020-12-21] MEDS: clonazePAM 0.5 MG TAB PO SCH (21:16)
[2020-12-22 05:16] VITALS: BMI 35.1
[2020-12-22 05:49] LABS: Eosinophils 1 % (0-10); Hemoglobin 14.6 g/dL (14.0-18.0); Lymphocytes 67 % (21-51); MDiff Complete? YES; Mean Corpuscular HGB CONC 31.1 g/dL (32.0-36.0); Mean Corpuscular Hemoglobin 22.8 pg (27.0-31.0); Mean Corpuscular Volume 73.5 fL (78.0-98.0); Mean Platelet Volume 8.7 fL (7.4-10.4); Monocytes 9 % (0-10); Neutrophil 23 % (42-75); Platelet Count 169 thou/uL (130-400); Platelet Morphology Comment Appears Adequate; RBC Distribution Width 12.8 % (11.5-14.5); Red Blood Cell (RBC) Count 6.38 mill/uL (4.70-6.10); White Blood Cell (WBC) Count 4.9 thou/uL (4.8-10.8)
[2020-12-22 05:55] LABS: ALT (SGPT) 20 U/L (8-55); AST (SGOT) 21 U/L (5-34); Albumin 3.8 g/dL (3.5-5.0); Alkaline Phosphatase 67 U/L (40-110); Anion Gap 10 mmol/L (10-20); BUN (Urea Nitrogen) 8 mg/dL (8.9-20.6); Bilirubin, Total 0.4 mg/dL (0.2-1.2); Calc. Creatinine Clearance 166 mL/min (70-130); Calcium 9.3 mg/dL (7.8-10.44); Carbon Dioxide 26 mmol/L (22-29); Chloride 105 mmol/L (98-107); Globulin 3.4 g/dL (2.4-3.5); Glucose 91 mg/dL (70-105); Potassium 3.8 mmol/L (3.5-5.1); Protein, Total 7.2 g/dL (6.0-8.3); Sodium 137 mmol/L (136-145)
[2020-12-22 08:28] VITALS: BP 122/67; TEMP 97.5
[2020-12-22] MEDS ORDERED: Amlodipine 5 MG TAB PO SCH (09:00)
[2020-12-22] MEDS ORDERED: FLUoxetine HCl 20 MG CAP PO SCH (09:00)
[2020-12-22] MEDS: clonazePAM 0.5 MG TAB PO SCH (09:12)
[2020-12-23] MEDS ORDERED: FLU VACC QS2021-22(6MOS UP)/PF 60 MCG/0.5 ML SYRINGE IM ONE (21:00)
== END 2020-12-22 13:02 | disposition home or self-care (01) | DRG 103 ==
LOC: ERS 15:30 → IMCU/EMU 16:10 → 3SE 12-21 21:16
PROVIDERS: ADMIT Internal Medicine; ATTEND Internal Medicine
DX: G43.419 Hemiplegic migraine, intractable, without status migrainosus (principal); R47.01 Aphasia; I10 Essential (primary) hypertension; E66.9 Obesity, unspecified; F32.9 Major depressive disorder, single episode, unspecified; F41.9 Anxiety disorder, unspecified; G40.909 Epilepsy, unspecified, not intractable, without status epilepticus; F39 Unspecified mood [affective] disorder; Z68.35 Body mass index [BMI] 35.0-35.9, adult; Z20.822 Contact with and (suspected) exposure to COVID-19; Z86.73 Personal history of transient ischemic attack (TIA), and cerebral infarction without residual deficits; Z79.82 Long term (current) use of aspirin; Z79.899 Other long term (current) drug therapy; Z98.890 Other specified postprocedural states
CPT/HCPCS: 36415; 37195; 70450; 70496; 70498; 70551; 80053; 80061; 82550; 84484; 85007; 85025; 85027; 85610; 85730; 93005; J2997; Q9967; U0002

== ENCOUNTER 2021-03-15 11:58 | Emergency (ER) | payer MEDICARE ==
[2021-03-15 19:43] LABS: SARS-CoV-2 PCR by NAA Not Detected (NotDetected)
== END 2021-03-15 13:11 | disposition home or self-care (01) ==
LOC: ERS 11:58
DX: B34.9 Viral infection, unspecified (principal); Z20.822 Contact with and (suspected) exposure to COVID-19; I10 Essential (primary) hypertension; G43.909 Migraine, unspecified, not intractable, without status migrainosus; Z86.73 Personal history of transient ischemic attack (TIA), and cerebral infarction without residual deficits
CPT/HCPCS: 99283; U0003; U0005

== ENCOUNTER 2021-04-13 19:20 | Inpatient (IN) | payer MEDICARE ==
[2021-04-13] MEDS ORDERED: Acetaminophen 500 MG TAB ONE (19:40)
[2021-04-13] MEDS ORDERED: Lorazepam 2 MG/ML VIAL ONE (19:43)
[2021-04-13 20:23] LABS: Hemoglobin 13.1 g/dL (14.0-18.0); Mean Corpuscular HGB CONC 30.7 g/dL (32.0-36.0); Mean Corpuscular Hemoglobin 22.7 pg (27.0-31.0); Mean Corpuscular Volume 74.1 fL (78.0-98.0); Mean Platelet Volume 8.6 fL (7.4-10.4); Platelet Count 135 thou/uL (130-400); RBC Distribution Width 12.9 % (11.5-14.5); Red Blood Cell (RBC) Count 5.76 mill/uL (4.70-6.10); White Blood Cell (WBC) Count 5.1 thou/uL (4.8-10.8)
[2021-04-13 20:48] LABS: AST (SGOT) 23 U/L (5-34); Albumin 3.8 g/dL (3.5-5.0); Anion Gap 12 mmol/L (10-20); BUN (Urea Nitrogen) 7 mg/dL (8.9-20.6); Bilirubin, Total 0.5 mg/dL (0.2-1.2); Calc. Creatinine Clearance 0 mL/min (70-130); Calcium 9.1 mg/dL (7.8-10.44); Carbon Dioxide 22 mmol/L (22-29); Chloride 106 mmol/L (98-107); Globulin 3.7 g/dL (2.4-3.5); Glucose 82 mg/dL (70-105); Potassium 3.4 mmol/L (3.5-5.1); Protein, Total 7.5 g/dL (6.0-8.3); Sodium 137 mmol/L (136-145)
[2021-04-13 20:54] LABS: Elliptocytes SLIGHT = 2-5 cells (100X) (0-1/hpf); Lymphocytes 43 % (21-51); MDiff Complete? YES; Microcytosis SLIGHT = 6-15 cells (100X) (0-5/hpf); Monocytes 16 % (0-10); Myelocyte 3 % (0-0); Neutrophil 38 % (42-75); Platelet Morphology Comment Appears Adequate; Target Cells MODERATE= 6-15 cells (100X) (0-1/hpf); Tear Drops SLIGHT = 2-5 cells (100X) (0-1/hpf)
[2021-04-13 21:04] LABS: Alkaline Phosphatase 65 U/L (40-110)
[2021-04-13 21:07] LABS: ALT (SGPT) 13 U/L (8-55)
[2021-04-13] MEDS ORDERED: Acetaminophen 325 MG TAB PO PRN (21:51)
[2021-04-13] MEDS ORDERED: Ondansetron PF 4 MG/2 ML Vial IVP PRN (21:51)
[2021-04-13] MEDS ORDERED: Lorazepam 2 MG/ML VIAL SLOW IVP PRN (21:53)
[2021-04-13] MEDS ORDERED: levETIRAcetam in NS 1,000 MG in Premix Bag 1 BAG IVPB SCH (22:00)
[2021-04-13] MEDS ORDERED: Potassium Chloride 20 MEQ TAB PO SCH (22:15)
[2021-04-13] MEDS ORDERED: Potassium Chloride 20 MEQ/100 ML PREMIX BAG IVPB SCH (23:15)
[2021-04-13] MEDS ORDERED: Potassium Chloride 20 MEQ/100 ML PREMIX BAG ONE (23:17)
[2021-04-14 02:30] LABS: SARS-CoV-2 NAA Rapid Test Not Detected (NotDetected)
[2021-04-14] MEDS ORDERED: Acetaminophen 325 MG TAB ONE (03:40)
[2021-04-14 04:32] LABS: Anion Gap 12 mmol/L (10-20); BUN (Urea Nitrogen) 7 mg/dL (8.9-20.6); Calc. Creatinine Clearance 0 mL/min (70-130); Calcium 9.3 mg/dL (7.8-10.44); Carbon Dioxide 24 mmol/L (22-29); Chloride 106 mmol/L (98-107); Glucose 89 mg/dL (70-105); Magnesium 1.9 mg/dL (1.6-2.6); Sodium 138 mmol/L (136-145)
[2021-04-14 05:13] LABS: Elliptocytes SLIGHT = 2-5 cells (100X) (0-1/hpf); Lymphocytes 50 % (21-51); MDiff Complete? YES; Mean Corpuscular HGB CONC 30.3 g/dL (32.0-36.0); Mean Corpuscular Hemoglobin 22.4 pg (27.0-31.0); Mean Platelet Volume 8.3 fL (7.4-10.4); Microcytosis SLIGHT = 6-15 cells (100X) (0-5/hpf); Monocytes 14 % (0-10); Neutrophil 36 % (42-75); Platelet Count 191 thou/uL (130-400); Platelet Morphology Comment Appears Adequate; Polychromasia SLIGHT = 2-3 cells (100X) (0-2/hpf); RBC Distribution Width 12.9 % (11.5-14.5); Red Blood Cell (RBC) Count 5.81 mill/uL (4.70-6.10); Stomatocytes SLIGHT = 2-5 cells (100X) (0-1/hpf); Target Cells SLIGHT = 2-5 cells (100X) (0-1/hpf); White Blood Cell (WBC) Count 3.6 thou/uL (4.8-10.8)
[2021-04-14] MEDS ORDERED: Enoxaparin Sodium 40 MG/0.4 ML SYRINGE ONE (10:24)
[2021-04-14] MEDS ORDERED: levETIRAcetam in NS 100 ML ONE (10:24)
[2021-04-14] MEDS: Enoxaparin Sodium 40 MG/0.4 ML SYRINGE SC SCH (10:27)
[2021-04-14] MEDS: levETIRAcetam in NS 1,000 MG in Premix Bag 1 BAG IVPB SCH ×2 (10:28→21:14)
[2021-04-14] MEDS ORDERED: Aspirin 81 mg Enteric Coated Tablet PO SCH (11:45)
[2021-04-14] MEDS ORDERED: Amlodipine 5 MG TAB PO SCH (11:45)
[2021-04-14] MEDS ORDERED: Metoprolol Tartrate 50 MG TAB PO SCH (11:45)
[2021-04-14] MEDS ORDERED: Aspirin Chewable 81 MG TAB ONE (15:28)
[2021-04-14] MEDS ORDERED: Metoprolol Tartrate 50 MG TAB ONE (15:28)
[2021-04-14] MEDS ORDERED: Amlodipine 5 MG TAB ONE (15:28)
[2021-04-14 20:55] VITALS: BMI 35.4
[2021-04-14] MEDS: Atorvastatin Calcium 10 MG TAB PO SCH (21:15)
[2021-04-14] MEDS: Metoprolol Tartrate 50 MG TAB PO SCH (21:15)
[2021-04-15 04:39] LABS: Amphetamine Not Detected (NotDetected); Barbiturates Screen Not Detected (NotDetected); Benzodiazepine Screen Detected (NotDetected); Cocaine Metabolite Screen Not Detected (NotDetected); Methadone Not Detected (NotDetected); Methamphetamine Not Detected (NotDetected); Opiate Screen Not Detected (NotDetected); Oxycodone Screen Not Detected (NotDetected); Phencyclidine (PCP) Not Detected (NotDetected); THC/Cannabinoid Screen Not Detected (NotDetected); Tricyclic Screen Detected (NotDetected)
[2021-04-15 06:25] LABS: Band 1 % (5-11); Hemoglobin 12.6 g/dL (14.0-18.0); Hypochromia SLIGHT = 6-15 cells (100X) (0-5/hpf); Lymphocytes 48 % (21-51); MDiff Complete? YES; Mean Corpuscular HGB CONC 29.6 g/dL (32.0-36.0); Mean Corpuscular Hemoglobin 22.1 pg (27.0-31.0); Mean Corpuscular Volume 74.6 fL (78.0-98.0); Mean Platelet Volume 8.2 fL (7.4-10.4); Monocytes 13 % (0-10); Neutrophil 38 % (42-75); Platelet Count 197 thou/uL (130-400); White Blood Cell (WBC) Count 3.6 thou/uL (4.8-10.8)
[2021-04-15 06:29] LABS: Anion Gap 12 mmol/L (10-20); BUN (Urea Nitrogen) 7 mg/dL (8.9-20.6); Calc. Creatinine Clearance 189 mL/min (70-130); Calcium 8.7 mg/dL (7.8-10.44); Carbon Dioxide 23 mmol/L (22-29); Chloride 106 mmol/L (98-107); Glucose 85 mg/dL (70-105); Magnesium 1.8 mg/dL (1.6-2.6); Potassium 3.8 mmol/L (3.5-5.1); Sodium 137 mmol/L (136-145)
[2021-04-15] MEDS: Enoxaparin Sodium 40 MG/0.4 ML SYRINGE SC SCH (08:37)
[2021-04-15] MEDS: Amlodipine 5 MG TAB PO SCH (08:38)
[2021-04-15] MEDS: Metoprolol Tartrate 50 MG TAB PO SCH ×2 (08:38→21:32)
[2021-04-15] MEDS: Aspirin 81 mg Enteric Coated Tablet PO SCH (08:38)
[2021-04-15] MEDS: levETIRAcetam in NS 1,000 MG in Premix Bag 1 BAG IVPB SCH (08:39)
[2021-04-15] MEDS: Atorvastatin Calcium 10 MG TAB PO SCH (21:33)
[2021-04-15] MEDS: levETIRAcetam 500 MG TAB PO SCH (21:33)
[2021-04-16 06:02] LABS: Anion Gap 11 mmol/L (10-20); BUN (Urea Nitrogen) 7 mg/dL (8.9-20.6); Calc. Creatinine Clearance 181 mL/min (70-130); Carbon Dioxide 24 mmol/L (22-29); Chloride 106 mmol/L (98-107); Glucose 85 mg/dL (70-105); Potassium 3.9 mmol/L (3.5-5.1); Sodium 137 mmol/L (136-145)
[2021-04-16 06:30] LABS: Elliptocytes SLIGHT = 2-5 cells (100X) (0-1/hpf); Eosinophils 2 % (0-10); Hemoglobin 13.3 g/dL (14.0-18.0); Hypochromia SLIGHT = 6-15 cells (100X) (0-5/hpf); Lymphocytes 55 % (21-51); MDiff Complete? YES; Mean Corpuscular HGB CONC 30.3 g/dL (32.0-36.0); Mean Corpuscular Hemoglobin 22.5 pg (27.0-31.0); Mean Corpuscular Volume 74.4 fL (78.0-98.0); Microcytosis SLIGHT = 6-15 cells (100X) (0-5/hpf); Monocytes 16 % (0-10); Myelocyte 1 % (0-0); Neutrophil 26 % (42-75); Platelet Count 206 thou/uL (130-400); Platelet Morphology Comment Appears Adequate; Polychromasia SLIGHT = 2-3 cells (100X) (0-2/hpf); Target Cells SLIGHT = 2-5 cells (100X) (0-1/hpf); White Blood Cell (WBC) Count 4.2 thou/uL (4.8-10.8)
[2021-04-16] MEDS ORDERED: Budesonide 0.25 MG/2 ML NEB ONE (07:28)
[2021-04-16 07:59] VITALS: BP 126/72; TEMP 97.8
[2021-04-16] MEDS: levETIRAcetam 500 MG TAB PO SCH (08:54)
[2021-04-16] MEDS: Metoprolol Tartrate 50 MG TAB PO SCH (08:55)
[2021-04-16] MEDS: Amlodipine 5 MG TAB PO SCH (08:55)
[2021-04-16] MEDS: Aspirin 81 mg Enteric Coated Tablet PO SCH (08:55)
[2021-04-16] MEDS: Enoxaparin Sodium 40 MG/0.4 ML SYRINGE SC SCH (08:56)
[2021-04-17] MEDS ORDERED: FLU VACC QS2021-22(6MOS UP)/PF 60 MCG/0.5 ML SYRINGE IM ONE (09:00)
== END 2021-04-16 11:45 | disposition home or self-care (01) | DRG 101 ==
LOC: ERS 19:20 → ERHOLD 21:51 → NEURO 04-14 20:32 → OBSVTOIN 04-15 12:42
PROVIDERS: ADMIT Internal Medicine; ATTEND Internal Medicine
DX: G40.919 Epilepsy, unspecified, intractable, without status epilepticus (principal); Z20.822 Contact with and (suspected) exposure to COVID-19; I10 Essential (primary) hypertension; E87.6 Hypokalemia; F41.9 Anxiety disorder, unspecified; G43.419 Hemiplegic migraine, intractable, without status migrainosus; E66.9 Obesity, unspecified; F32.A Depression, unspecified; Z86.73 Personal history of transient ischemic attack (TIA), and cerebral infarction without residual deficits; Z68.35 Body mass index [BMI] 35.0-35.9, adult
CPT/HCPCS: 36415; 36416; 80048; 80053; 80306; 80307; 83735; 85025; 95712; 95816; 95819; 95957; 96372; 96375; 96376; G0378; J1650; J1953; J2060; J3480; U0002

== ENCOUNTER 2021-05-08 16:03 | Emergency (ER) | payer MEDICARE ==
[2021-05-08] MEDS ORDERED: Acetaminophen 500 MG TAB ONE (16:33)
[2021-05-08 16:41] LABS: #Basophils 0.1 thou/uL (0.0-0.2); #Lymphocytes 2.5 thou/uL (1.20-3.40); #Monocytes 0.8 thou/uL (0.11-0.59); #Neutrophils 4.3 thou/uL (1.40-6.50); %Basophils 1.1 % (0.0-1.0); %Eosinophils 0.5 % (0.0-10.0); %Lymphocytes 32.5 % (21.0-51.0); %Monocytes 10.7 % (0.0-10.0); %Neutrophils 55.1 % (42.0-75.0); Hemoglobin 13.6 g/dL (14.0-18.0); Mean Corpuscular HGB CONC 29.8 g/dL (32.0-36.0); Mean Platelet Volume 6.6 fL (7.4-10.4); Platelet Count 378 thou/uL (130-400); Red Blood Cell (RBC) Count 5.92 mill/uL (4.70-6.10); White Blood Cell (WBC) Count 7.8 thou/uL (4.8-10.8)
[2021-05-08 17:05] LABS: Hypochromia SLIGHT = 6-15 cells (100X) (0-5/hpf); MDiff Complete? YES; Ovalocytes SLIGHT = 2-5 cells (100X) (0-1/hpf); Platelet Morphology Comment Appears Adequate
[2021-05-08 17:06] LABS: ALT (SGPT) 27 U/L (8-55); AST (SGOT) 20 U/L (5-34); Albumin 3.9 g/dL (3.5-5.0); Alkaline Phosphatase 108 U/L (40-110); Anion Gap 19 mmol/L (10-20); BUN (Urea Nitrogen) 5 mg/dL (8.9-20.6); Bilirubin, Total 0.3 mg/dL (0.2-1.2); Calc. Creatinine Clearance 0 mL/min (70-130); Calcium 9.5 mg/dL (7.8-10.44); Carbon Dioxide 19 mmol/L (22-29); Chloride 103 mmol/L (98-107); Globulin 4.6 g/dL (2.4-3.5); Glucose 74 mg/dL (70-105); Potassium 3.6 mmol/L (3.5-5.1); Protein, Total 8.5 g/dL (6.0-8.3); Sodium 137 mmol/L (136-145)
== END 2021-05-08 18:13 | disposition home or self-care (01) ==
LOC: ERS 16:03
DX: R55 Syncope and collapse (principal); I10 Essential (primary) hypertension; Z86.73 Personal history of transient ischemic attack (TIA), and cerebral infarction without residual deficits; Z79.82 Long term (current) use of aspirin; Z79.899 Other long term (current) drug therapy
CPT/HCPCS: 36415; 36416; 70450; 80053; 80177; 85025; 93005; 94760